=== PATIENT | female | born 1985 | race Caucasian/White ===

== ENCOUNTER → 2019-04-16 | Day surgery (SDC) | payer BC ==
--- NOTE | 2019-04-17 12:54 | PATH ---
Surgical Pathology Report Patient Name: WAYNE SCHRADER [facility]. Rec. #: [id number] /Age/Gender: 1985 (Age: 33) / F Account: [id number] Location: [facility] RADOLOGY MR Taken: 04/16/2019 Received: 04/16/2019 Reported: 04/17/2019 Physicians: Azeem Jacinto M.D. Specimen(s) Received A: LEFT BREAST MRI-GUIDED BIOPSY B: RIGHT BREAST MRI-GUIDED BIOPSY Clinical History None given Final Diagnosis A. BREAST, LEFT, MRI-GUIDED CORE BIOPSY: BENIGN BREAST TISSUE SHOWING STROMAL FIBROSIS. B. BREAST, RIGHT, MRI-GUIDED CORE BIOPSY CORE: BENIGN BREAST TISSUE SHOWING STROMAL FIBROSIS. Electronically Signed Kenisha Espinoza M.D. Gross Description A. Received in formalin labeled "left breast," is a 3.8 x 2.5 x 0.3 cm aggregate of abundant you-yellow, irregular to cylindrical portions of fibroadipose tissue. The formalin is filtered and the specimen is entirely submitted in 2 cassettes. B. Received in formalin labeled "right breast," are 8 you-yellow, cylindrical portions of fibroadipose tissue ranging from 0.9-1.7 cm in length and averaging 0.3 cm in diameter. The specimens are submitted in toto in 2 cassettes. Time to formalin fixation: 2 minutes Total formalin fixation time: Approximately 6 hours. 04/16/2019 saudi04/16/2019
== END | disposition home or self-care (01) ==
LOC: FRADUS-SUR 07:53
PROVIDERS: ATTEND Pathology Anatomic Pathology & Clinical Pathology
PROC: 0HBV3ZX Excision of Bilateral Breast, Percutaneous Approach, Diagnostic (ICD-10-PCS; principal; 2019-04-16)
DX: N60.31 Fibrosclerosis of right breast (principal); N60.32 Fibrosclerosis of left breast; N63.12 Unspecified lump in the right breast, upper inner quadrant; N63.21 Unspecified lump in the left breast, upper outer quadrant
CPT/HCPCS: 19085; 77066-TC; 88305-TC; A4648; A9579; C1887; C8908